=== PATIENT | female | born 1950 | race Caucasian/White ===

== ENCOUNTER → 2017-01-23 | Outpatient (CLI) | payer MEDICARE ==
[~2017-01-23] MED LIST: ALBU18HF PO; ASCO100T5 PO; ASPI-496 PO; B50 COMPLEX PO; CHOL500015 PO; EVE1000C3 PO; FEXO-64 PO; FLUT9.9S NS; JUICE PLUS GARDEN PO; JUICE PLUS ORCHARD PO; LEVO75TA5 PO; LIOT5TAB3 PO; MILK150C2 PO; OXYM30SP NAS; RED600TA PO; SALM1CAP4 PO; UBID100C24 PO; [UNRECOGNIZED DRUG - CODE] PO; [UNRECOGNIZED DRUG - CODE] PO
[2017-01-23 16:19] LABS: HEMOGLOBIN 13.1 g/dL (11.7-16.4); WHITE BLOOD COUNT 6.5 x10^3/uL (3.4-10)
== END | disposition home or self-care (01) ==
LOC: STAR 15:04
PROVIDERS: ATTEND Obstetrics & Gynecology
DX: Z01.818 Encounter for other preprocedural examination (principal); R10.2 Pelvic and perineal pain; J45.909 Unspecified asthma, uncomplicated
CPT/HCPCS: 36415; 71020; 85025; 93005

== ENCOUNTER 2017-01-28 09:25 | Day surgery (SDC) | payer MEDICARE ==
[2017-01-23 16:10] VITALS: BP 131/83
[~2017-01-28] VITALS: Ht 161.3 cm; Wt 60.0 kg
[~2017-01-28 09:25] MED LIST changes: +BUPIVACAINE/PF 0.25% ONE; +EPINEPHRINE 1 MG/ML, 1ML ONE; +SILVER NITRATE STICK TP ONE
[2017-01-28] MEDS ORDERED: LACTATED RINGERS 1,000 ML IV SCH (10:10)
[2017-01-28] MEDS ORDERED: LIDOCAINE 1%, 2ML ONE (10:15)
[2017-01-28] MEDS ORDERED: LIDOCAINE 1%, 2ML SQ PRN (10:30)
[2017-01-28] MEDS ORDERED: NAPR220C2 PO (10:31)
[2017-01-28] MEDS ORDERED: SUCCINYLCHOLINE 20 MG/ML, 10ML ONE (11:26)
[2017-01-28] MEDS ORDERED: PROPOFOL 10 MG/ML, 20ML ONE (11:26)
[2017-01-28] MEDS ORDERED: ONDANSETRON 2MG/ML, 2ML ONE (11:26)
[2017-01-28] MEDS ORDERED: DEXAMETHASONE 4 MG/ML, 1ML ONE (11:26)
[2017-01-28] MEDS ORDERED: ROCURONIUM 10 MG/ML ONE (11:26)
[2017-01-28] MEDS ORDERED: MIDAZOLAM 1 MG/ML, 2ML ONE (11:27)
[2017-01-28] MEDS ORDERED: FENTANYL PF 100 MCG/2ML ONE ×2 (11:27→12:41)
[2017-01-28] MEDS ORDERED: ALBUTEROL SULFATE 2.5 MG/3 ML NPPB PRN (11:30)
[2017-01-28] MEDS ORDERED: HYDROmorphone 1 MG/ML, 1ML IV PRN (11:30)
[2017-01-28] MEDS ORDERED: ACETAMINOPHEN 325 MG TABLET PO PRN (11:30)
[2017-01-28] MEDS ORDERED: hydrALAzine 20 MG/ML, 1ML IV PRN (11:30)
[2017-01-28] MEDS ORDERED: METOPROLOL 1 MG/ML, 5ML IV PRN (11:30)
[2017-01-28] MEDS ORDERED: LABETALOL 5MG/ML, 20ML IV PRN (11:30)
[2017-01-28] MEDS ORDERED: METOCLOPRAMIDE 5 MG/ML, 2ML IV PRN (11:30)
[2017-01-28] MEDS ORDERED: FENTANYL PF 100 MCG/2ML IV PRN (11:30)
[2017-01-28] MEDS ORDERED: KETOROLAC 30 MG/1 ML IV PRN (11:30)
[2017-01-28] MEDS ORDERED: HYDROcodone/APAP 7.5-325MG/15ML UDC PO PRN (11:30)
[2017-01-28] MEDS ORDERED: EPHEDRINE 50 MG/ML, 1ML IVPush PRN (11:30)
[2017-01-28] MEDS ORDERED: ONDANSETRON 2MG/ML, 2ML IVPush PRN (11:30)
[2017-01-28] MEDS ORDERED: HYDROcodone/APAP 7.5-325MG/15ML UDC ONE (12:42)
[2017-01-28] MEDS ORDERED: KETOROLAC 30 MG/1 ML ONE (12:42)
== END 2017-01-28 14:50 ==
LOC: OUT 09:25
PROVIDERS: ATTEND Obstetrics & Gynecology
DX: N83.312 Acquired atrophy of left ovary (principal); N83.311 Acquired atrophy of right ovary; E78.5 Hyperlipidemia, unspecified; E03.9 Hypothyroidism, unspecified; Z88.6 Allergy status to analgesic agent; Z79.82 Long term (current) use of aspirin
CPT/HCPCS: 49320; J0171; J0330; J1100; J1885; J2250; J2405; J2704; J3010; J3490; J7120

== ENCOUNTER 2018-11-13 10:45 | Outpatient (CLI) | payer MEDICARE ==
[~2018-11-13 10:45] MED LIST changes: -BUPIVACAINE/PF 0.25% ONE; -EPINEPHRINE 1 MG/ML, 1ML ONE; +NAPR220C2 PO; -SILVER NITRATE STICK TP ONE
== END 2018-11-13 23:59 | disposition home or self-care (01) ==
LOC: CFH 10:45
PROVIDERS: ATTEND Internal Medicine Cardiovascular Disease
DX: I08.8 Other rheumatic multiple valve diseases (principal); R93.1 Abnormal findings on diagnostic imaging of heart and coronary circulation; E78.5 Hyperlipidemia, unspecified; I10 Essential (primary) hypertension
CPT/HCPCS: 93306